=== PATIENT | male | born 1935 | race Caucasian/White ===

== ENCOUNTER → 2024-08-11 10:39 | Outpatient (REF) | payer OTHER, SELFPAY ==
[2024-08-12 06:53] LABS: ALT (SGPT) 12 U/L (0-50); AST (SGOT) 17 U/L (17-59); Albumin 4.1 g/dl (3.5-5.0); Alkaline Phosphatase 115 U/L (38-126); Blood Urea Nitrogen 15 mg/dl (9-20); Calcium 9.3 mg/dl (8.4-10.2); Carbon Dioxide 29 mmol/L (22-30); Chloride 106 mmol/L (98-107); Glucose 143 mg/dl (70-99); Potassium 4.7 mmol/L (3.5-5.1); Sodium 141 mmol/L (135-145); Total Bilirubin 1.2 mg/dl (0.2-1.3); eGFR > 60.00
[2024-08-12 06:54] LABS: Hematocrit 37.1 % (39.0-52.0); Hemoglobin 12.3 g/dL (13.0-18.0); Mean Corp Hgb Conc. 33.2 g/dL (33.0-37.0); Mean Corpuscular Hgb 34.1 pg (27.0-31.0); Mean Corpuscular Volume 102.8 fL (80.0-94.0); Mean Platelet Volume 10.4 fL (7.4-10.4); Platelet Count 198 10^3/uL (130-400); Red Blood Cell Count 3.61 10^6/uL (4.70-6.10); Red Cell Dist. Width 12.9 % (11.5-14.5); White Blood Cell Count 6.6 10^3/uL (4.8-10.8)
[2024-08-12 15:00] LABS: Glycohemoglobin (HgbA1c) 7.2 % (4.0-5.6)
== END ==
LOC: OLABSOL 10:39
PROVIDERS: ATTENDING PHYSICIAN Internal Medicine
DX: E11.8 Type 2 diabetes mellitus with unspecified complications (principal); I48.91 Unspecified atrial fibrillation
CPT/HCPCS: 80053; 83036; 85027

== ENCOUNTER 2024-12-30 17:13 | Emergency (ER) | payer OTHER, SELFPAY ==
[2024-12-30 17:16] VITALS: BP 156/88
[2024-12-30 17:40] LABS: Hematocrit 40.4 % (39.0-52.0); Hemoglobin 13.2 g/dL (13.0-18.0); Mean Corp Hgb Conc. 32.7 g/dL (33.0-37.0); Mean Corpuscular Volume 101.5 fL (80.0-94.0); Nucleated Red Blood Cells % 0 % (-); Platelet Count 219 10^3/uL (130-400); Red Cell Dist. Width 13.1 % (11.5-14.5)
[2024-12-30 17:56] LABS: ALT (SGPT) < 10 U/L (0-50); AST (SGOT) 18 U/L (17-59); Albumin 4.6 g/dl (3.5-5.0); Alkaline Phosphatase 129 U/L (38-126); Blood Urea Nitrogen 15 mg/dl (9-20); Calcium 9.2 mg/dl (8.4-10.2); Carbon Dioxide 29 mmol/L (22-30); Chloride 105 mmol/L (98-107); Glucose 142 mg/dl (70-99); Potassium 4.3 mmol/L (3.5-5.1); Sodium 140 mmol/L (135-145); Total Protein 7.7 g/dl (6.3-8.2); eGFR > 60.00
[2024-12-30 19:36] VITALS: BP 151/82
--- NOTE | 2024-12-30 20:31 | ED.GENMED ---
History of Present Illness
General
Chief Complaint: Breathing Problem
Source: patient and family
Exam Limitations: none
Time Seen by Provider: 12/30/24 20:02
Nursing documentation reviewed up to this point in time: agreed with
History of Present Illness
History of Present Illness:
89-year-old male past medical history of A-fib currently on Eliquis, CAD hypertension hyperlipidemia presenting to the emergency department today with concerns of trouble swallowing over the past week gradually worsening noticing white patches to
the mouth. Also noted some redness and irritation to the eyes right side worse than the left. Denies any chest pain shortness of breath or fevers.
Past History
Past History
ED Past Medical History: Arrthythmia, CAD, GERD, HTN, Hypercholesterolemia, NIDDM and Other (There are disease status post stenting of the LAD and circumflex, borderline diabetes, status post cholecystectomy)
ED Past Surgical History: Cardiac and Cholecystectomy
Social History
Tobacco: Non-smoker
Alcohol: Occasional
Drug: None
Personal:
Living: with family
Employment: Retired
Family History
Family History: Diabetes and CAD
Review of Systems
Review of Systems
Allergies reviewed?: Yes
All Other Systems: ROS reviewed and negative except as documented in HPI and ROS
Phy Exam
Physical Exam
Physical Exam:
GENERAL: Alert , in no apparent distress
EYE: pupils equal and reactive
NECK: Supple, no significant adenopathy.
ENT: No significant swelling to the posterior pharynx o/p clr, mmm.
CARDIAC: Regular rate and rhythm .
LUNGS: Clear breath sounds bilaterally, no acute respiratory distress, no wheezes/rales/rhonchi
ABDOMEN: Soft, without focal tenderness, no r/g, no cvat
NEUROLOGICAL: Alert and oriented, no focal neuro deficits
SKIN: Warm and dry, skin intact.
MUSCULOSKELETAL: No edema, well perfused.
PSYCH: Normal and appropriate interaction.
White patches to the tongue as well as the posterior pharynx
Scores
Heart Failure Risk
Heart Failure Risk Score: Not Applicable
Course
Orders/Labs/Results
Orders:
Orders
12/30/24 17:21
Electrocardiogram (*1) Urgent
Reason for Study: Shortness of Breath
EKG- Treatment ONCE
12/30/24 17:30
Complete Blood Count/With Diff Urgent
Comprehensive Metabolic Panel Urgent
12/30/24 21:19
Clotrimazole [Mycelex Maggie] 10 mg PO NOW STA
Abnormal Lab Results
12/30/24
17:30
RBC 3.98 L 10^6/uL
(4.70-6.10)
MCV 101.5 H fL
(80.0-94.0)
MCH 33.2 H pg
(27.0-31.0)
MCHC 32.7 L g/dL
(33.0-37.0)
Absolute Neuts (auto) 8.3 H 10^3/uL
(1.4-6.5)
Absolute Lymphs (auto) 0.9 L 10^3/uL
(1.2-3.4)
Absolute Monos (auto) 0.8 H 10^3/uL
(0.1-0.6)
Neutrophils % 80.7 H %
(42.2-75.2)
Lymphocytes % 8.9 L %
(20.5-51.1)
Glucose 142 H mg/dl
(70-99)
Total Bilirubin 1.4 H mg/dl
(0.2-1.3)
Alkaline Phosphatase 129 H U/L
(38-126)
12/30/24 17:30
12/30/24 17:30
Vital Signs
Initial and Last Documented VS:
Initial Vital Signs
Temp Pulse Resp BP Pulse Ox
98.6 F 67 18 156/88 97
12/30/24 17:16 12/30/24 17:16 12/30/24 17:16 12/30/24 17:16 12/30/24 17:16
Last Documented Vital Signs
Temp Pulse Resp BP Pulse Ox
98.6 F 86 20 151/82 95
12/30/24 17:16 12/30/24 19:45 12/30/24 19:45 12/30/24 19:36 12/30/24 20:32
MDM/Problems Addressed
MDM/Problems Addressed:
89-year-old male presenting to the emergency department today with concerns of just at mouth with worsening irritation with swallowing. Has been able to tolerate by mouth and tolerate his pills. Denies any fevers chest pain shortness of breath.
Symptoms consistent with thrush. Able to tolerate by mouth was written for clotrimazole otherwise will follow-up closely as an outpatient. Return precautions given.
*Pulse Oximetry
SaO2: 95
Oxygen Mode of Delivery: Room air
Patient hypoxic: no (95)
*Critical Care Note
Total Time (30-74mins, 75-104mins- exclusive of procedures): Not Applicable
ED Attending Note
-
Portions of this chart may have been created with voice recognition software.� Occasional wrong word or��sound alike� substitutions may have occurred due to the inherent limitations of voice recognition software.
Discharge Plan
Departure
Patient Disposition: Home (Routine Discharge)
Date of Disposition: 12/30/24
Time of Disposition: 21:37
Patient with high blood pressure during this ER visit?: No
Condition: Good
Covid-19: Not Applicable
Discharge Problem:
Candidiasis of mouth
Instructions: Thrush in adults
Prescriptions:
New
clotrimazole 10 mg maggie
10 mg mucous membrane 5/D 7 Days Qty: 35 0RF
No Action
metformin 500 MG tablet
500 mg PO DAILY
nitroglycerin 0.4 MG tablet, sublingual
0.4 mg sublingual [id number] PRN (Reason: chest pain)
lisinopril 5 MG tablet
5 mg PO DAILY
metoprolol succinate 25 MG tablet extended release 24 hr
25 mg PO DAILY
atorvastatin 40 MG tablet
40 mg PO DAILY
apixaban [Eliquis] 5 MG tablet
5 mg PO BID
carbidopa-levodopa 1 TABLET tablet
1 tab PO TID
Patient Comments:
Patient unsure of dose
Referrals:
UNKNOWN - PT DOES,NOT KNOW [Family Provider]
Activity Restrictions/Additional Instructions:
Take prescription for clotrimazole as prescribed. Please follow up with your physician this week for reevaluation and further care
Interventions
Interventions:
*Risk Screen - Suicide Last Done: 12/30/24 17:19
*General Assessment Last Done: 12/30/24 17:19
*Neglect/Abuse Screening Last Done: 12/30/24 17:19
*ED- Fall Risk Assessment Last Done: 12/30/24 22:56
*ED COVID-19 Vaccine History Last Done: 12/30/24 17:19
*ED Influenza Vaccine History Last Done: 12/30/24 17:19
*Nursing Disposition Last Done: 12/30/24 22:56
ED-EENT Assessment Last Done: 12/30/24 19:55
FI-Suehsy-Fxlcemokqj Assessment Last Done: 12/30/24 19:55
ED- Pulmonary Assessment Last Done: 12/30/24 19:55
ED- Neurological Assessment Last Done: 12/30/24 19:55
ED- Cardiac Assessment Last Done: 12/30/24 19:55
ED Swallowing Screen Last Done: 12/30/24 19:55
Discharge Date and Time
Discharge Date/Time: 12/30/24 22:57
Print Language: VINCENTIAN
== END 2024-12-30 22:57 | disposition home or self-care (01) ==
LOC: EMR 17:13
PROVIDERS: Emergency Medicine; EMERGENCY PHYSICIAN Emergency Medicine
DX: B37.0 Candidal stomatitis (principal); E11.9 Type 2 diabetes mellitus without complications; I25.10 Atherosclerotic heart disease of native coronary artery without angina pectoris; I48.91 Unspecified atrial fibrillation; I10 Essential (primary) hypertension; E78.00 Pure hypercholesterolemia, unspecified; K21.9 Gastro-esophageal reflux disease without esophagitis; Z79.01 Long term (current) use of anticoagulants; Z79.84 Long term (current) use of oral hypoglycemic drugs; Z95.5 Presence of coronary angioplasty implant and graft; Z82.49 Family history of ischemic heart disease and other diseases of the circulatory system; Z83.3 Family history of diabetes mellitus
CPT/HCPCS: 99284; 80053; 85025; 93005